=== PATIENT | male | born 1975 | race Caucasian/White ===

== ENCOUNTER 2016-08-12 00:47 | Emergency (ER) | payer BC ==
[~2016-08-12] VITALS: Ht 188 cm; Wt 113.4 kg
[2016-08-12] MEDS ORDERED: CYMBALTA20 MG PO (01:13)
[2016-08-12] MEDS ORDERED: CIALIS2.5 MG PO (01:14)
[2016-08-12] MEDS ORDERED: DICLOFENAC SODI75 MG PO (01:14)
[2016-08-12] MEDS ORDERED: HYDROCODONE-AP1 EAC6 PO (01:14)
[2016-08-12 03:10] VITALS: BP 148/86
== END 2016-08-12 03:11 | disposition home or self-care (01) ==
LOC: ER 00:47
DX: S01.511A Laceration without foreign body of lip, initial encounter (principal); W22.8XXA Striking against or struck by other objects, initial encounter; Y93.9 Activity, unspecified; Y92.9 Unspecified place or not applicable; Y99.9 Unspecified external cause status

== ENCOUNTER 2020-05-18 07:13 | Emergency (ER) | payer BC, OTHER ==
[~2020-05-18] VITALS: Ht 182.9 cm; Wt 104.3 kg
[~2020-05-18 07:13] MED LIST: CIALIS2.5 MG PO; CYMBALTA20 MG PO; DICLOFENAC SODI75 MG PO; HYDROCODONE-AP1 EAC6 PO
[2020-05-18] MEDS ORDERED: PREDNISONE50 MG PO (07:42)
[2020-05-18 08:14] VITALS: BP 127/92
== END 2020-05-18 08:17 | disposition home or self-care (01) ==
LOC: ER 07:13
DX: M54.5 Low back pain (principal); F17.210 Nicotine dependence, cigarettes, uncomplicated; Z79.899 Other long term (current) drug therapy

== ENCOUNTER 2020-07-02 08:30 | Emergency (ER) | payer BC, OTHER ==
[~2020-07-02] VITALS: Ht 177.8 cm; Wt 99.8 kg
[~2020-07-02 08:30] MED LIST changes: +PREDNISONE50 MG PO
[2020-07-02 09:23] LABS: HEMOGLOBIN 14.5 gm/dL (14.0-18.0); MCH 29.6 pg (26.0-34.0); MCV 89.8 fL (80.0-100.0); RBC 4.9 mil/uL (4.50-6.00)
[2020-07-02] MEDS ORDERED: NEURONTIN 300M300 M2 PO (09:26)
[2020-07-02] MEDS ORDERED: ADDERALL 20 MG20 M1 PO (09:27)
[2020-07-02] MEDS ORDERED: ALPRAZOLAM1 MG PO (09:28)
[2020-07-02] MEDS ORDERED: ARIPIPRAZOLE10 MG PO (09:28)
[2020-07-02] MEDS ORDERED: NORCO 10-325 T1 EACH PO (09:29)
[2020-07-02 09:33] LABS: CALCIUM 9.2 mg/dL (8.5-10.1); CREATININE 1.4 mg/dL (0.7-1.3); POTASSIUM 4.2 mmol/L (3.5-5.1)
[2020-07-02 09:44] LABS: URINE BILIRUBIN NEGATIVE (Negative); URINE BLOOD 3+ (Negative); URINE CLARITY SL CLOUDY; URINE COLOR YELLOW; URINE GLUCOSE-RANDOM* NEGATIVE (Negative); URINE KETONES NEGATIVE (Negative); URINE LEUKOCYTES-REFLEX NEGATIVE (Negative); URINE NITRITE-REFLEX NEGATIVE (Negative); URINE PROTEIN (DIPSTICK) NEGATIVE (Negative); URINE SPECIFIC GRAVITY >= 1.030 (1.005-1.035); URINE UROBILINOGEN 0.2 E.U./dl (0.2-1.0)
[2020-07-02 09:54] LABS: BACTERIA-REFLEX 1-9 Few /HPF (None Seen); CASTS None Seen /LPF (None Seen); CRYSTALS None Seen /LPF (None Seen); SQUAMOUS None Seen /LPF (0-3); URINE WBC-REFLEX 0-5 Rare /HPF (0-5)
[2020-07-02] MEDS ORDERED: ZOFRAN ODT4 MG PO (10:23)
[2020-07-02 11:37] VITALS: BP 110/75
== END 2020-07-02 11:39 | disposition home or self-care (01) ==
LOC: ER 08:30
PROVIDERS: Emergency Medicine
DX: N20.0 Calculus of kidney (principal); Z79.899 Other long term (current) drug therapy

== ENCOUNTER 2020-09-03 09:46 | Emergency (ER) | payer BC, OTHER ==
[~2020-09-03] VITALS: Ht 177.8 cm; Wt 104.3 kg
[~2020-09-03 09:46] MED LIST changes: +ADDERALL 20 MG20 M1 PO; +ALPRAZOLAM1 MG PO; +ARIPIPRAZOLE10 MG PO; +NEURONTIN 300M300 M2 PO; +NORCO 10-325 T1 EACH PO; +ZOFRAN ODT4 MG PO
[2020-09-03] MEDS ORDERED: ARMODAFINIL250 MG PO (10:32)
[2020-09-03] MEDS ORDERED: OXYCODONE-ACET1 EACH PO (10:32)
[2020-09-03] MEDS ORDERED: GABAPENTIN800 M1 PO (10:33)
[2020-09-03 11:49] LABS: ABSOLUTE NEUTROPHILS 11.1 thou/uL (1.4-8.2); BASOPHILS 0.5 % (0.0-2.0); EOSINOPHILS 0.8 % (0.0-3.0); HEMATOCRIT 42.2 % (42.0-52.0); LYMPHOCYTES 10.5 % (24.0-44.0); MCH 29.1 pg (26.0-34.0); MCHC 33.2 g/dL (28.0-37.0); MCV 87.6 fL (80.0-100.0); MONOCYTES 7.8 % (1.0-8.0); PLATELET COUNT 350 thou/uL (150-400); POLYS 80.4 % (36.0-66.0); RBC 4.81 mil/uL (4.50-6.00); RDW 12.9 % (10.5-14.5); WBC 13.8 thou/uL (4.0-11.0)
[2020-09-03 12:00] LABS: POTASSIUM 3.9 mmol/L (3.5-5.1)
[2020-09-03 12:06] LABS: ALBUMIN 3.6 g/dL (3.4-5.0); TOTAL BILIRUBIN 1.1 mg/dL (0.2-1.0); TOTAL PROTEIN 6.7 g/dL (6.4-8.2)
[2020-09-03] MEDS ORDERED: NAPROSYN500 MG PO (13:29)
[2020-09-03] MEDS ORDERED: KEFLEX500 M1 PO (13:29)
[2020-09-03 13:47] VITALS: BP 107/66
== END 2020-09-03 13:47 | disposition home or self-care (01) ==
LOC: ER 09:46
PROVIDERS: Emergency Medicine
DX: T81.41XA Infection following a procedure, superficial incisional surgical site, initial encounter (principal); F17.210 Nicotine dependence, cigarettes, uncomplicated; Z79.899 Other long term (current) drug therapy